=== PATIENT | female | born 1980 | race Asian ===

== ENCOUNTER 2017-09-17 05:49 | Emergency (ER) | payer MEDICAID ==
[~2017-09-17] VITALS: Ht 149.9 cm; Wt 42.9 kg
[2017-09-17 06:34] LABS: CLARITY,URINE Cloudy (Clear); COLOR,URINE Yellow (Yellow); GLUCOSE, URINE Negative (Neg); KETONES,URINE Trace mg/dl (Neg); LEUKOCYTE ESTERASE ,URINE Moderate (Neg); NITRITES, URINE Positive (Neg); OCCULT BLOOD,URINE Negative (Neg); PROTEIN,URINE Negative (Neg); UROBILINOGEN,URINE 0.2 E.U/dL (0.2-1.0)
[2017-09-17 06:35] LABS: URINE HCG NEGATIVE (NEG)
[2017-09-17 06:52] LABS: UA COLLECTION TYPE CLN CATCH MIDSTREAM
[2017-09-17 06:54] LABS: BACTERIA,URINE 3+ /HPF (Neg); MUCUS STRANDS NONE SEEN /LPF (Neg); RBC,URINE NONE SEEN /HPF (0-2); SQUAMOUS EPITHELIAL CELL,UR FEW /LPF (FEW); WBC,URINE 50-100 /HPF (0-4)
[2017-09-17] MEDS ORDERED: CIPR-260 PO (07:27)
[2017-09-17] MEDS: CefTRIAXone 1000mg IM Kit (w/lidocaine diluent) IM ONE ×2 (07:42→07:51)
[2017-09-17] MEDS: azithromycin 250mg tablet PO ONE ×2 (07:43→07:51)
[2017-09-17 07:58] VITALS: BP 100/71
== END 2017-09-17 08:01 | disposition home or self-care (01) ==
LOC: ER 05:52
DX: R10.32 Left lower quadrant pain (principal); N39.0 Urinary tract infection, site not specified; A64 Unspecified sexually transmitted disease
CPT/HCPCS: 36415; 81001; 81025; 87077; 87088; 87186; 87491; 87591; 96372; 99284; J0696